=== PATIENT | male | born 1955 | race Caucasian/White ===

== ENCOUNTER 2018-03-13 09:43 | Day surgery (SDC) | payer MEDICAID, SELFPAY ==
--- NOTE | 2018-03-08 16:58 | EKG12_ITS ---
Test Reason : PREOP Blood Pressure : / mmHG Vent. Rate : 064 BPM Atrial Rate : 064 BPM P-R Int : 180 ms QRS Dur : 092 ms QT Int : 418 ms P-R-T Axes : 067 041 043 degrees QTc Int : 431 ms Normal sinus rhythm Normal ECG Confirmed by EFREN HERNANDEZ ([id number]), food editor SHERON BERNAL ([id number] on 03/13/2018 2:47:07 PM Referred By: Tony Wilkinson Confirmed By:EFREN HERNANDEZ
[2018-03-08 17:14] LABS: Hematocrit 46.8 % (40-54); Hemoglobin 15.8 g/dl (13.0-16.5); Mean Corp Hgb Conc 33.8 g/gl (32-36); Mean Corpuscular Hgb 30.6 pg (27.0-32.0); Mean Corpuscular Volume 90.7 fL (80-94); Mean Platelet Vol. 10.3 fl (6.2-12.0); Platelet Count 196 K/mm3 (150-450); RBC Distribution Width CV 13.7 % (11.6-14.6); RBC Distribution Width SD 44.8 fl (35.1-43.9); Red Blood Count 5.16 M/mm3 (4.6-6.2); White Blood Count 7.3 K/mm3 (4.4-11.0)
[2018-03-08 17:28] LABS: Scan Indicated on CBC? Y/N NO
[2018-03-08 17:35] LABS: Anion Gap 11 (5-15); BUN 18 mg/dL (7-18); BUN/Creat Ratio 14.5 RATIO (10-20); Calcium,Total 9.1 mg/dL (8.5-10.1); Chloride 105 mmol/L (98-107); Creatinine, Serum 1.24 mg/dL (0.70-1.30); EST Glomerular Filtration Rate 62 mL/min (>60); Est Glom Filt Rate - Afr Amer 75 mL/min (>60); Glucose 101 mg/dL (74-106); Sodium Level 138 mmol/L (136-145)
[2018-03-13 10:17] VITALS: BP 115/66; PULSE 54; RESP 16; TEMP 36.7; O2SAT 97; BMI 26.1
--- NOTE | 2018-03-13 10:29 | DCINST_ITS ---
You will use the following diet at home:: No restrictions Discharge Activity: Return to Normal Activity Call your doctor if your incision/area has: Increased Pain/ Swelling Additional Dressing/Incision Instructions:: use give drops to ear - 4 drops twice daily for 3 days. Allergies/Adverse Reactions: Allergies No Known Allergies Allergy (Verified 03/13/18 09:59) Medications to take at Discharge Aspirin [Aspirin, Baby] 81 mg PO DAILY@0800 03/13/18 Bupropion HCl [Wellbutrin Sr] 150 mg PO BID 03/13/18 Citalopram [Celexa] 20 mg PO DAILY 03/13/18 Glipizide [Glucotrol] 10 mg PO BID 03/13/18 Lisinopril [Zestril] 10 mg PO DAILY 03/13/18 Metformin HCl [Glucophage] 1,000 mg PO BIDCM 03/13/18 Omeprazole [Prilosec] 20 mg PO DAILY 03/13/18 Pravastatin [Pravachol] 20 mg PO QHS 03/13/18 Primary Care Physician: Leah Moore MD [Primary Care Provider] - Test Results: Test results from this visit will be discussed in further detail at your follow- up appointment, if applicable. Please Follow Up With: Tony Wilkinson MD When: 3 weeks
[2018-03-13 10:30] LABS: Bedside Glucose 184 mg/dL (70-110)
--- NOTE | 2018-03-13 10:37 | OP.PCM_ITS ---
Problem List (1) Eustachian tube dysfunction Status: Chronic (2) Chronic serous otitis media of right ear Status: Chronic Report of Operation Date of Procedure: 03/13/18 Pre-Operative Diagnosis: 1. chronic serous otitis, right ear. 2. eustachian tube dysfunction, right Post-Operative Diagnosis: 1. chronic serous otitis, right ear. 2. eustachian tube dysfunction, right Surgery/Procedure Performed:: 1. placement pressure equalization tube, right ear. 2. eustachian tube dilation, right Description of Procedure: on the day of the procedure, after appropriate informed consent was obtained, the patient was brought to the operating room and placed in supine position on the operating table. he was placed under general endotracheal anesthesia by the anesthesiologist; the endotracheal tube was secured, the eyes were taped. the right ear was examined with the binocular operating microscope. a speculum was placed. the tympanic membrane was viewed in its entirety and found to be intact. a radial myringotomy was made in the anterior/inferior quadrant. a T- tube was placed. floxin drops were placed. the bilateral nasal cavities were decongested with oxymetazoline soaked pledgets. the zero degree endoscope was used to visualize the right eustachian tube orifice. the acclarent AERA system was used to gently cannulate the eustachian tube. once a soft stop was encountered, the balloon was inflated to 12 nandini for 2 minutes and removed. there was no false passage. the patient was awoken from anesthesia and transferred to the PACU in stable condition.
[2018-03-13] MEDS: Ciprofloxacin 0.3% 2.5ml Bottle 1 DRP (11:58)
[2018-03-13] MEDS: Oxymetazoline 0.05% 1 SPRAY SPRAY.BTL 15 SPRAY (12:07)
[2018-03-13 12:21] VITALS: BP 115/66; BP 144/88; PULSE 65; RESP 16; TEMP 36.7; O2SAT 100
[2018-03-13 12:30] VITALS: BP 115/66; BP 135/79; PULSE 60; RESP 16; O2SAT 98
[2018-03-13 12:31] LABS: Bedside Glucose 139 mg/dL (70-110)
[2018-03-13 12:45] VITALS: BP 115/66; BP 129/83; PULSE 60; RESP 16; TEMP 36.4; O2SAT 98
[2018-03-13 12:58] VITALS: BP 115/66
== END 2018-03-13 13:07 | disposition home or self-care (01) ==
LOC: SDC 09:43 → AC 09:44
PROVIDERS: Family Provider Internal Medicine; PCP Internal Medicine; Visit Provider Otolaryngology
PROC: (CPT 69799; principal; 2018-03-13 11:25)
DX: H69.81 Other specified disorders of Eustachian tube, right ear (principal); H65.21 Chronic serous otitis media, right ear; E11.9 Type 2 diabetes mellitus without complications; E78.00 Pure hypercholesterolemia, unspecified; Z79.899 Other long term (current) drug therapy; Z79.84 Long term (current) use of oral hypoglycemic drugs; I25.10 Atherosclerotic heart disease of native coronary artery without angina pectoris; I10 Essential (primary) hypertension; I25.2 Old myocardial infarction; Z87.891 Personal history of nicotine dependence; K21.9 Gastro-esophageal reflux disease without esophagitis; Z79.82 Long term (current) use of aspirin
CPT/HCPCS: 00126; 69436; 36415; 80048; 82962; 85027; 93005; J7120; J2405